=== PATIENT | male | born 1970 | race Caucasian/White ===

== ENCOUNTER 2018-07-24 12:58 | Emergency (ER) | payer OTHER ==
[~2018-07-24] VITALS: Ht 180.3 cm; Wt 104.3 kg
--- OUTSIDE RECORDS SUMMARY | ~2018-07-24 | XMS | Clinical Summary ---
Demographics + + + | Address | [address] | | | [place] [address] | + + + | Home Phone | | + + + | Preferred Language | Unknown | + + + | Marital Status | | + + + | Muslim Affiliation | Unknown | + + + | Race | Unknown | + + + | Ethnic Group | Unknown | + + + Author + + + | Author | [facility] | | | and [place] | + + + | Organization | [facility] | | | and [place] | + + + | Address | Unknown | + + + | Phone | Unavailable | + + + Support + + + + + | Name | Relationship | Address | Phone | + + + + + | Michelle Oliva | ECON | [address] | | | | | [place] | | | | | [address] | | + + + + + Care Team Providers + +------+ + | Care Remittance Clerk Name | Role | Phone | + +------+ + | Reggie Baker MD | PP | | + +------+ + Allergies + + + + + + | Active Allergy | Reactions | Severity | Noted | Comments | | | | | Date | | + + + + + + | Latex | Rash | Low | 09/27/20 | | | | | | 14 | | + + + + + + Current Medications + + +---------+---------+------+------+-------+ | Prescription | Sig. | Disp. | Refills | Star | End | Statu | | | | | | t | Date | s | | | | | | Date | | | + + +---------+---------+------+------+-------+ | FLUoxetine | Take 20 mg by mouth | | | | | Activ | | (PROZAC) 20 mg | Daily. | | | | | e | | capsule | | | | | | | + + +---------+---------+------+------+-------+ | aripiprazole | Take 30 mg by mouth | | | | | Activ | | (ABILIFY) 30 MG | Daily. | | | | | e | | tablet | | | | | | | + + +---------+---------+------+------+-------+ | QUEtiapine | Take 100 mg by mouth | | | | | Activ | | (SEROQUEL) 100 mg | nightly. | | | | | e | | tablet | | | | | | | + + +---------+---------+------+------+-------+ | gabapentin | Take 3 capsules by | 270 | 0 | /2 | | Activ | | (NEURONTIN) 300 mg | mouth 3 times daily. | capsule | | 01/19 | | e | | capsuleIndications: | | | | 16 | | | | Midline low back | | | | | | | | pain without | | | | | | | | sciatica, Bilateral | | | | | | | | low back pain | | | | | | | | without sciatica, | | | | | | | | Cervical spondylosis | | | | | | | | without myelopathy, | | | | | | | | Cervical stenosis | | | | | | | | of spine, DDD | | | | | | | | (degenerative disc | | | | | | | | disease), lumbar | | | | | | | + + +---------+---------+------+------+-------+ | | Take 10 mg by mouth | | | 042 | | Activ | | amphetamine-dextroam | Daily. | | | 03/21 | | e | | phetamine (ADDERALL | | | | 17 | | | | XR) 10 mg 24 hr | | | | | | | | capsule | | | | | | | + + +---------+---------+------+------+-------+ Active Problems + + + | Problem | Noted Date | + + + | S/P cervical spinal fusion | 01/07/2017 | + + + | Anemia | 12/04/2016 | + + + | BMI 39.0-39.9,adult | 12/04/2016 | + + + | History of tobacco abuse | 12/04/2016 | + + + | H/O Allergy to LATEX | 12/03/2016 | + + + | Cervical subluxation, subsequent encounter | 08/08/2016 | + + + | Cervical cord myelomalacia (HCC) | 08/08/2016 | + + + | Degenerative disc disease, cervical | 08/08/2016 | + + + | Chronic low back pain | 02/15/2015 | + + + | Facet arthritis of lumbar region (HCC) | 02/15/2015 | + + + | DDD (degenerative disc disease), lumbar | 02/15/2015 | + + + | Cervical spondylosis with myelopathy | 01/10/2015 | + + + | Cervical stenosis of spine | 01/10/2015 | + + + | Foraminal stenosis of cervical region | 01/10/2015 | + + + | Bilateral low back pain without sciatica | 01/10/2015 | + + + | ADHD (attention deficit hyperactivity disorder) | | + + + | Depression | | + + + Family History + + +------+ + | Medical History | Relation | Name | Comments | + + +------+ + | Arthritis | Father | | | + + +------+ + | Hypertension | Father | | | + + +------+ + | Alcohol abuse | Mother | | | + + +------+ + | Arthritis | Mother | | | + + +------+ + | Hypertension | Mother | | | + + +------+ + | Mental illness | Mother | | | + + +------+ + | Other (see comment) | Mother | | lung problems | + + +------+ + + +------+--------+ + | Relation | Name | Status | Comments | + +------+--------+ + | Father | | | | + +------+--------+ + | Mother | | | | + +------+--------+ + Social History + + + +--------+ + | Tobacco Use | Types | Packs/Day | Years | Date | | | | | Used | | + + + +--------+ + | Former Smoker | Cigarettes | 0.5 | 20 | Quit: 01/10/2009 | + + + +--------+ + + +------+---+---+ | Smokeless Tobacco: | Chew | | | | Current User | | | | + +------+---+---+ + + +---------+ + | Alcohol Use | Drinks/We | oz/Week | Comments | | | ek | | | + + +---------+ + | No | 0 | 0.0 | quit 2012 | | | Standard | | | | | drinks or | | | | | | | | | | equivalen | | | | | t | | | + + +---------+ + + + + | Sex Assigned at | Date Recorded | | | | + + + | Not on file | | + + + Last Filed Vital Signs + + + + | Vital Sign | Reading | Time Taken | + + + + | Blood Pressure | 124/78 | 03/04/2017 1243 PDT | + + + + | Pulse | 80 | 03/04/20171242 PDT | + + + + | Temperature | 35.6 C (96.1 F) | 12/05/2016718 PST | + + + + | Respiratory Rate | 18 | 12/05/2016718 PST | + + + + | Oxygen Saturation | 96% | 12/05/201619 PST | + + + + | Inhaled Oxygen | - | - | | Concentration | | | + + + + | Weight | 110.7 kg (244 lb) | 03/04/20171242 PDT | + + + + | Height | 180.3 cm (5' 11") | 03/04/20171242 PDT | + + + + | Body Mass Index | 34.03 | 03/04/20171242 PDT | + + + + Plan of Treatment + + + + + | Health Maintenance | Due Date | Last Done | Comments | + + + + + | Vaccine: | | | | | Dtap/Tdap/Td (1 - | 1 | | | | Tdap) | | | | + + + + + | Vaccine: Influenza | | | | | (#1) | 8 | | | + + + + + Implants + +-------+--------+ +--------+--------+--------+ | Implanted | Type | Area | Manufacture | Device | Expira | Model | | | | | r | | tion | / | | | | | | Identi | Date | Serial | | | | | | fier | | / Lot | + +-------+--------+ +--------+--------+--------+ | Hayes Sharpn Pls 1cc Aseptic | Graft | N/A: | [employer]IC - | | 08/13/ | [id number] | | - [id number]: Qty: | | Spine | MEDT | | 2018 | | | 1 on 12/04/2016 by Nila, | | Linda | | | | /[id number] | | Brain Rae MD | | al | | | | 6-090 | | | | | | | | / | + +-------+--------+ +--------+--------+--------+ | Algrft Cerv [id number] - | Graft | N/A: | SPINALGRAFT | | 07/15/ | [id number] | | [id number]: Qty: 1 on | | Spine | | | 2018 | | | 12/04/2016 by Brain Dotson, | | Cervgina | TECHNOLOGIE | | | /[id number] | | MD | | al | S - SPNL | | | 735 | | | | | | | | /12136 | | | | | | | | 1441 | + +-------+--------+ +--------+--------+--------+ | Algrft Cerv [id number] - | Graft | N/A: | SPINALGRAFT | | 06/16/ | [id number] | | [id number]: Qty: 1 on | | Spine | | | 2018 | | | 12/04/2016 by Brain Dotson, | | Cervic | TECHNOLOGIE | | | /[id number] | | MD | | al | S - SPNL | | | 786 | | | | | | | | /90191 | | | | | | | | 0353 | + +-------+--------+ +--------+--------+--------+ | Algrft Cerv 6 X 4 X11m - | Graft | N/A: | SPINALGRAFT | | 07/29/ | [id number] | | [id number]: Qty: 1 on | | Spine | | | 2018 | | | 12/04/2016 by Brain Dotson, | | Cervic | TECHNOLOGIE | | | /03727 | | MD | | al | S - SPNL | | | 280 | | | | | | | | /80414 | | | | | | | | 1576 | + +-------+--------+ +--------+--------+--------+ | Algrft Cerv [id number] - | Graft | N/A: | SPINALGRAFT | | 06/16/ | 447219 | | [id number]: Qty: 1 on | | Spine | | | 2018 | | | 12/04/2016 by Brain Dotson, | | Cervic | TECHNOLOGIE | | | /[id number] | | MD | | al | S - SPNL | | | 790 | | | | | | | | /52885 | | | | | | | | 0353 | + +-------+--------+ +--------+--------+--------+ | Plate [place]mol [place] Cerv | Plate | N/A: | MED[employer]IC - | | | 252371 | | 77.5mm - [id number]: | | Spine | MEDT | | | 7 / | | Qty: 1 on 12/04/2016 by Nila, | | Linda | | | | | | Brain Rae MD | | al | | | | | + +-------+--------+ +--------+--------+--------+ | Screw Slf-Drl F/A 4.0x17mm - | Screw | N/A: | SOFAMOR | | | [id number] | | [id number]: Qty: 2 on | | Spine | DANEK - DIV | | | / | | 12/04/2016 by Brain Dotson, | | Reidic | [employer]IC | | | | | MD | | al | - SFDK | | | | + +-------+--------+ +--------+--------+--------+ | Screw Slf-Drl V/A 4.0x17mm - | Screw | N/A: | SOFAMOR | | | [id number] | | [id number]: Qty: 8 on | | Spine | DANEK - DIV | | | / | | 12/04/2016 by Brain Dotson, | | Cervic | MEDTRONIC | | | | | MD | | al | - SFDK | | | | + +-------+--------+ +--------+--------+--------+ Results Not on filefrom Last 3 Months Insurance + +--------+ +--------+ +---------+ | Payer | Benefi | Subscriber | Type | Phone | Address | | | t Plan | ID | | | | | | / | | | | | | | Group | | | | | + +--------+ +--------+ +---------+ | [employer] | MODA | [id number] | Medica | [phone] | | | MEDICAID HMO | HEALTH | | id | [id number] | | | | [place]CD | | | | | | | [place] | | | | | + +--------+ +--------+ +---------+ + +--------+ +--------+ + + | Guarantor Name | Accoun | Relation to | Date | Phone | Billing Address | | | t Type | Patient | of | | | | | | | | | | + +--------+ +--------+ + + | KEM OLIVA | Person | Self | [birth year] | Home: | [address] | | [place] | al/Fam | | 1970 | [phone] | [address], | | | [place] | | | [phone] | [place] [phone] | + +--------+ +--------+ + +
--- OUTSIDE RECORDS SUMMARY | ~2018-07-24 | XMS | Clinical Summary ---
Demographics + + + | Address | [address] | | | [place] [address] | + + + | Home Phone | | + + + | Preferred Language | Unknown | + + + | Marital Status | | + + + | Roman Catholic Affiliation | Unknown | + + + | Race | Unknown | + + + | Ethnic Group | Unknown | + + + Author + + + | Author | [facility] | + + + | Organization | [facility] | + + + | Address | Unknown | + + + | Phone | Unavailable | + + + Support + + +---------+ + | Name | Relationship | Address | Phone | + + +---------+ + | Dinorah Oliva | ECON | Unknown | | + + +---------+ + Care Team Providers + +------+ + | Care Real Estate Professional Name | Role | Phone | + [...]
--- OUTSIDE RECORDS SUMMARY | ~2018-07-24 | XMS | Clinical Summary ---
Demographics + + + | Address | [address] | | | [place] [address] | + + + | Home Phone | | + + + | Preferred Language | Unknown | + + + | Marital Status | | + + + | Yarsani Affiliation | Unknown | + + + | Race | Unknown | + + + | Ethnic Group | Unknown | + + + Author + + + | Author | [facility] | | | and [place] | + + + | Organization | [facility] | | | [...] [place] | | | | | [address] | | + + + + + Care Team Providers + +------+ + | Care Health Record Technician Name | Role | Phone | + [...] | [employer] - | | 08/13/ | [id number] | | - [id number]: Qty: | | Spine | MEDT | | 2018 | | | 1 on 12/04/2016 by Nila, | | Linda | | | | /[id number] | | Brain Rae MD | | al | | | | 6-090 | | | | | | | | / | + +-------+--------+ +--------+--------+--------+ | Algrft Cerv [id number] - | Graft | N/A: | SPINALGRAFT | | 07/15/ | 464810 | | [id number]: Qty: 1 on | | Spine | | | 2018 | | | 12/04/2016 by Brain Dotson, | | Cervgina | TECHNOLOGIE | | | /34480 | | MD | | al | S - SPNL | | | 735 | | | | | | | | /57896 | | | | | | | | 1441 | + +-------+--------+ +--------+--------+--------+ | Algrft Cerv [id number] - | Graft | N/A: | SPINALGRAFT | | 06/16/ | 143187 | | [id number]: Qty: 1 on | | Spine | | | 2018 | | | 12/04/2016 by Brain Dotson, | | Cervic | TECHNOLOGIE | | | /[id number] | | MD | | al | S - SPNL | | | 786 | | | | | | | | /89882 | | | | | | | | 0353 | + +-------+--------+ +--------+--------+--------+ | Algrft Cerv 6 X 4 X11m - | Graft | N/A: | SPINALGRAFT | | 07/29/ | 234909 | | [id number]: Qty: 1 on | | Spine | | | 2018 | | | 12/04/2016 by Brain Dotson, | | Cervic | TECHNOLOGIE | | | /38280 | | MD | | al | S - SPNL | | | 280 | | | | | | | | /02993 | | | | | | | | 1576 | + +-------+--------+ +--------+--------+--------+ | Algrft Cerv [id number] - | Graft | N/A: | SPINALGRAFT | | 06/16/ | 023878 | | [id number]: Qty: 1 on | | Spine | | | 2018 | | | 12/04/2016 by Brain Dotson, | | Cervic | TECHNOLOGIE | | | /53811 | | MD | | al | S - SPNL | | | 790 | | | | | | | | /52976 | | | | | | | | 0353 | + +-------+--------+ +--------+--------+--------+ | Plate Anmol [place] Cerv | Plate | N/A: | [employer] - | | | 592231 | | 77.5mm - [id number]: | | Spine | MEDT | | | 7 / | | Qty: 1 on 12/04/2016 by Nila, | | Linda | | | | | | Brain Rae MD | | al | | | | | + +-------+--------+ +--------+--------+--------+ | Screw Slf-Drl F/A 4.0x17mm - | Screw | N/A: | SOFAMOR | | | [id number] | | [id number]: Qty: 2 on | | Spine | DANEK - DIV | | | / | | 12/04/2016 by Brain Dotson, | | Reidic | [employer]IC | | | | | MD | | al | - SFDK | | | | + +-------+--------+ +--------+--------+--------+ | Screw Slf-Drl V/A 4.0x17mm - | Screw | N/A: | SOFAMOR | | | 258861 | | [id number]: Qty: 8 on | | Spine | [...] | [employer] | MODA | [id number] | Medica | [phone] | | | MEDICAID HMO | HEALTH [...] Self | [birth year] | Home: | [address] | | [place] | al/Fam | | 1970 | [phone] | [address], | | | [place] | | | [phone] | [place] [phone] | + +--------+ +--------+ + +
--- OUTSIDE RECORDS SUMMARY | ~2018-07-24 | XMS | Clinical Summary ---
Demographics + + + | Address | [address] | | | [place] [address] | + + + | Home Phone | | + + + | Preferred Language | Unknown | + + + | Marital Status | | + + + | Cheondoism Affiliation | Unknown | + + + | Race | Unknown | + + + | Ethnic Group | Unknown | + + + Author + + + | Author | [facility] | + + + | Organization | [facility] | + + + | Address | Unknown | + + + | Phone | Unavailable | + + + Support + + +---------+ + | Name | Relationship | Address | Phone | + + +---------+ + | Dinorah Oliva | ECON | Unknown | | + + +---------+ + Care Team Providers + +------+ + | Care Manager Action Name | Role | Phone | + [...]
[~2018-07-24 12:58] MED LIST: ABILIFY10 MG PO; ANAPROX DS550 MG PO; BACLOFEN10 MG PO; CELEXA10 MG PO; CELEXA20 MG PO; CELEXA40 MG PO; CITALOPRAM HBR40 MG PO; CRUTCH1 EACH; CYCLOBENZAPRINE10 MG PO; DULCOLAX5 MG PO; FLEXERIL10 MG PO; FLUOXETINE HCL20 MG PO; GABAPENTIN300 MG PO; GUANFACINE HCL2 MG PO; HYDROCODON-ACE1 EAC8 PO; IBUPROFEN200 MG PO; IBUPROFEN600 MG PO; IBUPROFEN800 MG PO; LACTULOSE10 GM/152 PO; MEDROL4 M1 PO; MELOXICAM15 MG PO; NORCO 5-325 TA1 EACH PO; PAIN RELIEVER325 MG PO; PERCOCET 10-321 EACH PO; PERCOCET 5-3251 EACH PO; RITALIN10 MG PO; ROBAXIN-750750 MG PO; SEROQUEL100 MG PO; TRAMADOL HCL50 MG PO; TRAZODONE HCL50 MG PO; TYLENOL325 MG PO; XANAX0.5 MG PO; XANAX1 MG PO
[2018-07-24] MEDS ORDERED: SEROQUEL XR150 MG PO (13:24)
[2018-07-24] MEDS ORDERED: VENLAFAXINE H37.5 MG PO (13:26)
[2018-07-24] MEDS ORDERED: CYCLOBENZAPRINE5 MG PO (14:14)
[2018-07-24] MEDS ORDERED: KETOROLAC TROME10 MG PO (14:14)
[2018-07-24] MEDS ORDERED: NORCO 10-325 T1 EACH PO (14:14)
== END 2018-07-24 14:34 | disposition home or self-care (01) ==
LOC: ED 12:58
DX: M62.838 Other muscle spasm (principal); F32.9 Major depressive disorder, single episode, unspecified; F90.9 Attention-deficit hyperactivity disorder, unspecified type; Z91.040 Latex allergy status; Z79.899 Other long term (current) drug therapy
CPT/HCPCS: 96372; 99283; J1100; J1885

== ENCOUNTER 2018-07-27 21:47 | Emergency (ER) | payer OTHER ==
[~2018-07-27] VITALS: Ht 177.8 cm; Wt 95.2 kg
--- OUTSIDE RECORDS SUMMARY | ~2018-07-27 | XMS | Clinical Summary ---
Demographics + + + | Address | [address] | | | [place] [address] | + + + | Home Phone | | + + + | Preferred Language | Unknown | + + + | Marital Status | | + + + | Sikhism Affiliation | Unknown | + + + | Race | Unknown | + + + | Ethnic Group | Unknown | + + + Author + + + | Author | [facility] | + + + | Organization | [facility] | + + + | Address | Unknown | + + + | Phone | Unavailable | + + + Support + + +---------+ + | Name | Relationship | Address | Phone | + + +---------+ + | Dinorah Oliva | ECON | Unknown | | + + +---------+ + Care Team Providers + +------+ + | Care Staff Therapist Name | Role | Phone | + +------+ + | Kervin Monroe MD | PP | | + +------+ + Allergies Not on File Current Medications Not on file Active Problems Not on file Social History + +-------+ +--------+------+ | Tobacco Use | Types | Packs/Day | Years | Date | | | | | Used | | + +-------+ +--------+------+ | Never Assessed | | | | | + +-------+ +--------+------+ + + + | Sex Assigned at | Date Recorded | | | | + + + | Not on file | | + + + Plan of Treatment Not on file Results Not on filefrom Last 3 Months"
--- OUTSIDE RECORDS SUMMARY | ~2018-07-27 | XMS | Clinical Summary ---
Demographics + + + | Address | [address] | | | [place] [address] | + + + | Home Phone | | + + + | Preferred Language | Unknown | + + + | Marital Status | | + + + | Sabianist Affiliation | Unknown | + + + | Race | Unknown | + + + | Ethnic Group | Unknown | + + + Author + + + | Author | [facility] | | | and [place] | + + + | Organization | [facility] | | | and [...] [address] | | | | | [address] | | + + + + + Care Team Providers + +------+ + | Care Preanalytics Team Lead Name | Role | Phone | + [...] | [employer] - | | 08/13/ | [id number] | | - [id number]: Qty: | | Spine | MEDT | | 2018 | | | 1 on 12/04/2016 by Nila, | | Linda | | | | /[id number] | | Brain Rae MD | | al | | | | 6-090 | | | | | | | | / | + +-------+--------+ +--------+--------+--------+ | Algrft Cerv [id number] - | Graft | N/A: | SPINALGRAFT | | 07/15/ | [id number] | | [id number]: Qty: 1 on | | Spine | | | 2018 | | | 12/04/2016 by Brain Dotson, | | Cervgina | TECHNOLOGIE | | | /03987 | | MD | | al | S - SPNL | | | 735 | | | | | | | | /34665 | | | | | | | | 1441 | + +-------+--------+ +--------+--------+--------+ | Algrft Cerv [id number] - | Graft | N/A: | SPINALGRAFT | | 06/16/ | 032263 | | [id number]: Qty: 1 on | | Spine | | | 2018 | | | 12/04/2016 by Brain Dotson, | | Cervic | TECHNOLOGIE | | | /78553 | | MD | | al | S - SPNL | | | 786 | | | | | | | | /44851 | | | | | | | | 0353 | + +-------+--------+ +--------+--------+--------+ | Algrft Cerv 6 X 4 X11m - | Graft | N/A: | SPINALGRAFT | | 07/29/ | 619635 | | [id number]: Qty: 1 on | | Spine | | | 2018 | | | 12/04/2016 by Brain Dotson, | | Cervic | TECHNOLOGIE | | | /59136 | | MD | | al | S - SPNL | | | 280 | | | | | | | | /78407 | | | | | | | | 1576 | + +-------+--------+ +--------+--------+--------+ | Algrft Cerv [id number] - | Graft | N/A: | SPINALGRAFT | | 06/16/ | 578861 | | [id number]: Qty: 1 on | | Spine | | | 2018 | | | 12/04/2016 by Brain Dotson, | | Cervic | TECHNOLOGIE | | | /94896 | | MD | | al | S - SPNL | | | 790 | | | | | | | | /57048 | | | | | | | | 0353 | + +-------+--------+ +--------+--------+--------+ | Plate [place]mol [place] Cerv | Plate | N/A: | [employer]IC - | | | 718260 | | 77.5mm - [id number]: | | Spine | MEDT | | | 7 / | | Qty: 1 on 12/04/2016 by Nila, | | Linda | | | | | | Brain Rae MD | | al | | | | | + +-------+--------+ +--------+--------+--------+ | Screw Slf-Drl F/A 4.0x17mm - | Screw | N/A: | SOFAMOR | | | [id number] | | [id number]: Qty: 2 on | | Spine | DANEK - DIV | | | / | | 12/04/2016 by Brain Dotson, | | Reidic | MEDTRONIC | | | | | MD | | al | - SFDK | | | | + +-------+--------+ +--------+--------+--------+ | Screw Slf-Drl V/A 4.0x17mm - | Screw | N/A: | SOFAMOR | | | [id number] | | [id number]: Qty: 8 on | | Spine | [...] | [employer] | MODA | [id number] | Medica | [phone] | | | MEDICAID HMO | HEALTH [...] Self | [birth year] | Home: | [address] | | [place] | al/Fam | | 1970 | [phone] | [address], | | | [place] | | | [phone] | [place] [address] | + +--------+ +--------+ + +
--- OUTSIDE RECORDS SUMMARY | ~2018-07-27 | XMS | Clinical Summary ---
Demographics + + + | Address | [address] | | | [place] [address] | + + + | Home Phone | | + + + | Preferred Language | Unknown | + + + | Marital Status | | + + + | Caodaism Affiliation | Unknown | + + + | Race | Unknown | + + + | Ethnic Group | Unknown | + + + Author + + + | Author | [facility] | + + + | Organization | [facility] | + + + | Address | Unknown | + + + | Phone | Unavailable | + + + Support + + +---------+ + | Name | Relationship | Address | Phone | + + +---------+ + | Dinorah Oliva | ECON | Unknown | | + + +---------+ + Care Team Providers + +------+ + | Care Speech Therapist Name | Role | Phone | [...]
--- OUTSIDE RECORDS SUMMARY | ~2018-07-27 | XMS | Clinical Summary ---
Demographics + + + | Address | [address] | | | [place] [address] | + + + | Home Phone | | + + + | Preferred Language | Unknown | + + + | Marital Status | | + + + | Rastafari Affiliation | Unknown | + + + | Race | Unknown | + + + | Ethnic Group | Unknown | + + + Author + + + | Author | [facility] | | | and [place] | + + + | Organization | [facility] | | | and [...] [place] | | | | | [address] | | + + + + + Care Team Providers + +------+ + | Care Gore Cutter Name | Role | Phone | + [...] Lot | + +-------+--------+ +--------+--------+--------+ | Hayes Shrapn Pls 1cc Aseptic | Graft | N/A: | [employer] - | | 08/13/ | [id number] | | - [id number]: Qty: | | Spine | MEDT | | 2018 | | | 1 on 12/04/2016 by Nila, | | Linda | | | | /[id number] | | Brain Rae MD | | al | | | | 6-090 | | | | | | | | / | + +-------+--------+ +--------+--------+--------+ | Algrft Cerv [id number] - | Graft | N/A: | SPINALGRAFT | | 07/15/ | 459033 | | [id number]: Qty: 1 on | | Spine | | | 2018 | | | 12/04/2016 by Brain Dotson, | | Cervgina | TECHNOLOGIE | | | /57214 | | MD | | al | S - SPNL | | | 735 | | | | | | | | /66067 | | | | | | | | 1441 | + +-------+--------+ +--------+--------+--------+ | Algrft Cerv [id number] - | Graft | N/A: | SPINALGRAFT | | 06/16/ | 282514 | | [id number]: Qty: 1 on | | Spine | | | 2018 | | | 12/04/2016 by Brian Dotson, | | Cervic | TECHNOLOGIE | | | /72786 | | MD | | al | S - SPNL | | | 786 | | | | | | | | /14966 | | | | | | | | 0353 | + +-------+--------+ +--------+--------+--------+ | Algrft Cerv 6 X 4 X11m - | Graft | N/A: | SPINALGRAFT | | 07/29/ | [id number] | | [id number]: Qty: 1 on | | Spine | | | 2018 | | | 12/04/2016 by Brain Dotson, | | Cervic | TECHNOLOGIE | | | /[id number] | | MD | | al | S - SPNL | | | 280 | | | | | | | | /30082 | | | | | | | | 1576 | + +-------+--------+ +--------+--------+--------+ | Algrft Cerv [id number] - | Graft | N/A: | SPINALGRAFT | | 06/16/ | [id number] | | [id number]: Qty: 1 on | | Spine | | | 2018 | | | 12/04/2016 by Brain Dotson, | | Cervic | TECHNOLOGIE | | | /[id number] | | MD | | al | S - SPNL | | | 790 | | | | | | | | /68104 | | | | | | | | 0353 | + +-------+--------+ +--------+--------+--------+ | Plate Anmol [facility] Cerv | Plate | N/A: | MEDTRONIC - | | | [id number] | | 77.5mm - [id number]: | | Spine | MEDT | | | 7 / | | Qty: 1 on 12/04/2016 by Nila, | | Linda | | | | | | Brain Rae MD | | al | | | | | + +-------+--------+ +--------+--------+--------+ | Screw Slf-Drl F/A 4.0x17mm - | Screw | N/A: | SOFAMOR | | | [id number] | | [id number]: Qty: 2 on | | Spine | DANEK - DIV | | | / | | 12/04/2016 by Brain Dotson, | | Reidic | MEDTRONIC | | | | | MD | | al | - SFDK | | | | + +-------+--------+ +--------+--------+--------+ | Screw Slf-Drl V/A 4.0x17mm - | Screw | N/A: | SOFAMOR | | | [id number] | | [id number]: Qty: 8 on | | Spine | [...] | [employer] | [employer] | [id number] | Medica | [phone] | | MEDICAID HMO | HEALTH [...] Self | [birth year] | Home: | [address] | | [place] | al/Fam | | 1970 | [phone] [address], | | | [place] | | | [phone] | [place] [phone] | + +--------+ +--------+ + +
[~2018-07-27 21:47] MED LIST changes: +CYCLOBENZAPRINE5 MG PO; +KETOROLAC TROME10 MG PO; +NORCO 10-325 T1 EACH PO; +SEROQUEL XR150 MG PO; +VENLAFAXINE H37.5 MG PO
--- OUTSIDE RECORDS SUMMARY | 2018-07-27 21:52 | XMS ---
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 Elaina has no Care Guidelines for this patient. Shakila VISIT COUNT (12 MO.) [address] [facility] TOTAL 3 NOTE: Visits indicate total known visits. ED/C VISIT TRACKING (12 MO.) 07/27/2018 21:47 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
[2018-07-28] MEDS ORDERED: CYCLOBENZAPRINE10 MG PO (16:05)
== END 2018-07-27 23:35 | disposition home or self-care (01) ==
LOC: ED 21:47
DX: M54.2 Cervicalgia (principal); F32.9 Major depressive disorder, single episode, unspecified; F90.9 Attention-deficit hyperactivity disorder, unspecified type; Z87.891 Personal history of nicotine dependence; Z91.040 Latex allergy status; Z79.899 Other long term (current) drug therapy
CPT/HCPCS: 99283

== ENCOUNTER 2018-07-28 12:38 | Emergency (ER) | payer OTHER ==
[~2018-07-28] VITALS: Ht 177.8 cm; Wt 95.2 kg
--- OUTSIDE RECORDS SUMMARY | ~2018-07-28 | XMS | Clinical Summary ---
Demographics + + + | Address | [address] | | | [place] [address] | + + + | Home Phone | | + + + | Preferred Language | Unknown | + + + | Marital Status | | + + + | Lutheran Affiliation | Unknown | + + + | Race | Unknown | + + + | Ethnic Group | Unknown | + + + Author + + + | Author | [facility] | | | and [place] | + + + | Organization | [facility] | | | [...] [address] | | | | | [address] | | + + + + + Care Team Providers + +------+ + | Care Television Receiver Analyzer Name | Role | Phone | + [...] | [employer]IC - | | 08/13/ | [id number] | | - [id number]: Qty: | | Spine | MEDT | | 2018 | | | 1 on 12/04/2016 by Nila, | | Linda | | | | /[id number] | | Brain Rae MD | | al | | | | 6-090 | | | | | | | | / | + +-------+--------+ +--------+--------+--------+ | Algrft Cerv [id number] - | Graft | N/A: | SPINALGRAFT | | 07/15/ | [id number] | | [id number]: Qty: 1 on | | Spine | | | 2018 | | | 12/04/2016 by Brain Dotson, | | Cervgina | TECHNOLOGIE | | | /[id number] | | MD | | al | S - SPNL | | | 735 | | | | | | | | /84255 | | | | | | | | 1441 | + +-------+--------+ +--------+--------+--------+ | Algrft Cerv [id number] - | Graft | N/A: | SPINALGRAFT | | 06/16/ | [id number] | | [id number]: Qty: 1 on | | Spine | | | 2018 | | | 12/04/2016 by Brain Dotson, | | Cervic | TECHNOLOGIE | | | /82283 | | MD | | al | S - SPNL | | | 786 | | | | | | | | /00850 | | | | | | | | 0353 | + +-------+--------+ +--------+--------+--------+ | Algrft Cerv 6 X 4 X11m - | Graft | N/A: | SPINALGRAFT | | 07/29/ | 608788 | | [id number]: Qty: 1 on | | Spine | | | 2018 | | | 12/04/2016 by Brain Dotson, | | Cervic | TECHNOLOGIE | | | /25599 | | MD | | al | S - SPNL | | | 280 | | | | | | | | /79864 | | | | | | | | 1576 | + +-------+--------+ +--------+--------+--------+ | Algrft Cerv [id number] - | Graft | N/A: | SPINALGRAFT | | 06/16/ | 483660 | | [id number]: Qty: 1 on | | Spine | | | 2018 | | | 12/04/2016 by Brain Dotson, | | Cervic | TECHNOLOGIE | | | /67116 | | MD | | al | S - SPNL | | | 790 | | | | | | | | /29791 | | | | | | | | 0353 | + +-------+--------+ +--------+--------+--------+ | Plate Anmol VenturaMondamin Cerv | Plate | N/A: | MED[employer]IC - | | | 586700 | | 77.5mm - [id number]: | | Spine | MEDT | | | 7 / | | Qty: 1 on 12/04/2016 by Nila, | | Linda | | | | | | Brain Rae MD | | al | | | | | + +-------+--------+ +--------+--------+--------+ | Screw Slf-Drl F/A 4.0x17mm - | Screw | N/A: | SOFAMOR | | | [id number] | | [id number]: Qty: 2 on | | Spine | DANEK - DIV | | | / | | 12/04/2016 by Brain Dotson, | | Reidic | [employer]IC | | | | | MD | | al | - SFDK | | | | + +-------+--------+ +--------+--------+--------+ | Screw Slf-Drl V/A 4.0x17mm - | Screw | N/A: | SOFAMOR | | | [id number] | | [id number]: Qty: 8 on | | Spine | [...] | [employer] | MODA | [id number] | Medica | [phone] | | | MEDICAID HMO | HEALTH [...] Self | [birth year] | Home: | [address] | | [place] | al/Fam | | 1970 | [phone] [address], | | | haylie | | | [phone] | [place] [address] | + +--------+ +--------+ + +
--- OUTSIDE RECORDS SUMMARY | ~2018-07-28 | XMS | Clinical Summary ---
Demographics + + + | Address | [address] | | | [place] [address] | + + + | Home Phone | | + + + | Preferred Language | Unknown | + + + | Marital Status | | + + + | Mu-Ism Affiliation | Unknown | + + + | Race | Unknown | + + + | Ethnic Group | Unknown | + + + Author + + + | Author | [facility] | | | and [place] | + + + | Organization | [facility] | | | [...] [address] | | | | | [address] | | + + + + + Care Team Providers + +------+ + | Care Alfalfa Dehydrator Operator Name | Role | Phone | + [...] | [employer] - | | 08/13/ | [id number] | | - [id number]: Qty: | | Spine | MEDT | | 2018 | | | 1 on 12/04/2016 by Nila, | | Linda | | | | /[id number] | | Brain Rae MD | | al | | | | 6-090 | | | | | | | | / | + +-------+--------+ +--------+--------+--------+ | Algrft Cerv [id number] - | Graft | N/A: | SPINALGRAFT | | 07/15/ | 859446 | | [id number]: Qty: 1 on | | Spine | | | 2018 | | | 12/04/2016 by Brain Dotson, | | Cervgina | TECHNOLOGIE | | | /15051 | | MD | | al | S - SPNL | | | 735 | | | | | | | | /36197 | | | | | | | | 1441 | + +-------+--------+ +--------+--------+--------+ | Algrft Cerv [id number] - | Graft | N/A: | SPINALGRAFT | | 06/16/ | 926371 | | [id number]: Qty: 1 on | | Spine | | | 2018 | | | 12/04/2016 by Brain Dotson, | | Cervic | TECHNOLOGIE | | | /23661 | | MD | | al | S - SPNL | | | 786 | | | | | | | | /76125 | | | | | | | | 0353 | + +-------+--------+ +--------+--------+--------+ | Algrft Cerv 6 X 4 X11m - | Graft | N/A: | SPINALGRAFT | | 07/29/ | 233055 | | [id number]: Qty: 1 on | | Spine | | | 2018 | | | 12/04/2016 by Brain Dotson, | | Cervic | TECHNOLOGIE | | | /72516 | | MD | | al | S - SPNL | | | 280 | | | | | | | | /52927 | | | | | | | | 1576 | + +-------+--------+ +--------+--------+--------+ | Algrft Cerv [id number] - | Graft | N/A: | SPINALGRAFT | | 06/16/ | 990194 | | [id number]: Qty: 1 on | | Spine | | | 2018 | | | 12/04/2016 by Brain Dotson, | | Cervic | TECHNOLOGIE | | | /63866 | | MD | | al | S - SPNL | | | 790 | | | | | | | | /77058 | | | | | | | | 0353 | + +-------+--------+ +--------+--------+--------+ | Plate Anmol Ventura[place]ucalyptus [place] Cerv | Plate | N/A: | [employer] - | | | 769227 | | 77.5mm - [id number]: | | Spine | MEDT | | | 7 / | | Qty: 1 on 12/04/2016 by Nila, | | Linda | | | | | | Brain Rae MD | | al | | | | | + +-------+--------+ +--------+--------+--------+ | Screw Slf-Drl F/A 4.0x17mm - | Screw | N/A: | SOFAMOR | | | [id number] | | [id number]: Qty: 2 on | | Spine | DANEK - DIV | | | / | | 12/04/2016 by Brain Dotson, | | Reidic | [employer]IC | | | | | MD | | al | - SFDK | | | | + +-------+--------+ +--------+--------+--------+ | Screw Slf-Drl V/A 4.0x17mm - | Screw | N/A: | SOFAMOR | | | 777260 | | [id number]: Qty: 8 on | | Spine | [...] | [employer] | MODA | [id number] | Medica | [phone] | | | MEDICAID HMO | HEALTH [...] [place] | | | [phone] | [place] [address] | + +--------+ +--------+ + +
--- OUTSIDE RECORDS SUMMARY | ~2018-07-28 | XMS | Clinical Summary ---
Demographics + + + | Address | [address] | | | [place] [address] | + + + | Home Phone | | + + + | Preferred Language | Unknown | + + + | Marital Status | | + + + | Hoahaoism Affiliation | Unknown | + + + | Race | Unknown | + + + | Ethnic Group | Unknown | + + + Author + + + | Author | [facility] | + + + | Organization | [facility] | + + + | Address | Unknown | + + + | Phone | Unavailable | + + + Support + + +---------+ + | Name | Relationship | Address | Phone | + + +---------+ + | Dinorah Oliva | ECON | Unknown | | + + +---------+ + Care Team Providers + +------+ + | Care Social Media Marketing Specialist Name | Role | Phone | + [...]
--- OUTSIDE RECORDS SUMMARY | ~2018-07-28 | XMS | Clinical Summary ---
Demographics + + + | Address | [address] | | | [place] [address] | + + + | Home Phone | | + + + | Preferred Language | Unknown | + + + | Marital Status | | + + + | Samaritan Affiliation | Unknown | + + + | Race | Unknown | + + + | Ethnic Group | Unknown | + + + Author + + + | Author | [facility] | + + + | Organization | [facility] | + + + | Address | Unknown | + + + | Phone | Unavailable | + + + Support + + +---------+ + | Name | Relationship | Address | Phone | + + +---------+ + | Dinorah Oliva | ECON | Unknown | | + + +---------+ + Care Team Providers + +------+ + | Care Armed Guard Name | Role | Phone | + [...]
[2018-07-28] MEDS ORDERED: CYCLOBENZAPRINE10 MG PO (16:05)
== END 2018-07-28 16:20 | disposition home or self-care (01) ==
LOC: ED 12:38
DX: M54.2 Cervicalgia (principal); G44.209 Tension-type headache, unspecified, not intractable; Z91.040 Latex allergy status; Z79.899 Other long term (current) drug therapy
CPT/HCPCS: 99283

== ENCOUNTER 2018-12-11 19:35 | Emergency (ER) | payer OTHER ==
[~2018-12-11] VITALS: Ht 177.8 cm; Wt 93.0 kg
[2018-12-11] MEDS ORDERED: ADDERALL XR 3030 MG PO (19:49)
== END 2018-12-11 22:50 | disposition home or self-care (01) ==
LOC: ED 19:35
DX: R51 Headache (principal); M54.2 Cervicalgia; M25.561 Pain in right knee; G89.29 Other chronic pain; W10.9XXA Fall (on) (from) unspecified stairs and steps, initial encounter; F32.9 Major depressive disorder, single episode, unspecified; F90.9 Attention-deficit hyperactivity disorder, unspecified type; Z87.891 Personal history of nicotine dependence; Z91.040 Latex allergy status; Z79.899 Other long term (current) drug therapy
CPT/HCPCS: 70450; 72100; 72125; 73560; 99284-25

== ENCOUNTER 2019-08-20 19:17 | Emergency (ER) | payer OTHER ==
[~2019-08-20] VITALS: Ht 177.8 cm; Wt 97.1 kg
--- OUTSIDE RECORDS SUMMARY | ~2019-08-20 | XMS | Clinical Summary ---
Demographics + + + | Address | [address] | | | [place] [address] | + + + | Home Phone | | + + + | Preferred Language | Unknown | + + + | Marital Status | | + + + | Rastafarian Affiliation | Unknown | + + + | Race | Unknown | + + + | Ethnic Group | Unknown | + + + Author + + + | Author | [facility] (Historical as of | | | 06-18-19) | + + + | Organization | [facility] (Historical as of | | | 06-18-19) | + + + | Address | Unknown | + + + | Phone | Unavailable | + + + Support + + +---------+ + | Name | Relationship | Address | Phone | + + +---------+ + | Dinorah Oliva | ECON | Unknown | | + + +---------+ + Care Team Providers + +------+ + | Care Quartz Orientator Name | Role | Phone | + [...]
--- OUTSIDE RECORDS SUMMARY | ~2019-08-20 | XMS | Clinical Summary ---
Demographics + + + | Address | [address] | | | [place] [address] | + + + | Home Phone | | + + + | Preferred Language | Unknown | + + + | Marital Status | | + + + | Episcopalian Affiliation | Unknown | + + + | Race | Unknown | + + + | Ethnic Group | Unknown | + + + Author + + + | Author | [facility] | | | and [place] | + + + | Organization | [facility] | | | and [place] | [...] [address] | | | | | [address] | | + + + + + Care Team Providers + +------+ + | Care Holistic Nutritionist Name | Role | Phone | + +------+ + | Kervin Monroe MD | PCP | | + +------+ + Allergies + + + + + + | Active Allergy | Reactions | Severity | Noted | Comments | | | | | Date | | + + + + + + | Latex | Rash | Low | 09/27/20 | | | | | | 14 | | + + + + + + Medications + + + +---------+------+------+-------+ | Medication | Sig | Dispensed | Refills | Star | End | Statu | | | | | | t | Date | s | | | | | | Date | | | + + + +---------+------+------+-------+ | QUEtiapine | Take 100 mg by mouth | | 0 | | | Activ | | (SEROQUEL) 100 mg | nightly. | | | | | e | | tablet | | | | | | | + + + +---------+------+------+-------+ | | Take 30 mg by mouth | | 0 | 10/1 | | Activ | | amphetamine-dextroam | 2 times daily. | | | 20 | | e | | phetamine (ADDERALL | | | | 18 | | | | XR) 30 MG 24 hr | | | | | | | | capsule | | | | | | | + + + +---------+------+------+-------+ | celecoxib | Take 200 mg by mouth | | 0 | 07/04 | | Activ | | (CELEBREX) 200 mg | Daily. | | | 03/21 | | e | | capsule | | | | 18 | | | + + + +---------+------+------+-------+ | venlafaxine | Take 37.5 mg by | | 0 | | | Activ | | (EFFEXOR) 37.5 mg | mouth Daily. | | | | | e | | tablet | | | | | | | + + + +---------+------+------+-------+ Active Problems + + + | Problem [...] + + + | Cervical cord myelomalacia | 08/08/2016 | + + + | Degenerative disc disease, cervical | 08/08/2016 | + + + | Chronic low back pain | 02/15/2015 | + + + | Facet arthritis of lumbar region | 02/15/2015 | + + + | [...] | | + + +------+ + | Cancer | Mother | | Throat | + + +------+ + | Hypertension | Mother | | | + + +------+ + | Mental illness | Mother | | | + + +------+ + | Other (see comment) | Mother | | lung problems | + + +------+ + + +------+ + + | Relation | Name | Status | Comments | + +------+ + + | Father | | | | + +------+ + + | Mother | | | | + +------+ + + Social History + + + +--------+ [...] | | | + +------+---+---+ + + | Tobacco Cessation: Ready to Quit: No; Counseling Given: Yes | | Comments: 1 can of chew a week | + + + + +---------+ + | Alcohol Use | Drinks/We | oz/Week | Comments | | | ek | | | + + +---------+ + | No | 0 | 0.0 | quit 2013 | | | Standard | | | | | drinks or | | | | | | | | | | equivalen | | | | | t | | | + + +---------+ + + + + | Sex Assigned at | Date Recorded | | | | + + + | Not on file | | + + + + + + + | Job Start Date | Occupation | Industry | + + + + | Not on file | Not on file | Not on file | + + + + + + + + | Travel History | Travel Start | Travel End | + + + + + + | No recent travel history available. | + + Last Filed Vital Signs + + + + | Vital Sign | Reading | Time Taken | + + + + | Blood Pressure | 143/91 | 08/19/20181432 PDT | + + + + | Pulse | 83 | 08/19/20181432 PDT | + + + + | Temperature | 35.6 C (96.1 F) | 12/05/2016718 PST | + + + + | Respiratory Rate | 18 | 12/05/2016718 PST | + + + + | Oxygen Saturation | 96% | 12/05/2016718 PST | + + + + | Inhaled Oxygen | - | - | | Concentration | | | + + + + | Weight | 97.5 kg (215 lb) | 08/19/20181432 PDT | + + + + | Height | 180.3 cm (5' 11") | 08/19/20181432 PDT | + + + + | Body Mass Index | 29.99 | 08/19/20181432 PDT | + + + + Plan [...] | | | | | (#1) | 9 | | | + + + + + Implants + +-------+--------+ +--------+--------+--------+ | Implanted | Type | Area | Manufacture | Device | Shelf | Model | | | | | r | | Expira | / | | | | | | Identi | tion | Serial | | | | | | fier | Date | / Lot | + +-------+--------+ +--------+--------+--------+ | Hayes Sharpn Pls 1cc Aseptic | Graft | N/A: | [employer] - | | 08/13/ | [id number] | | - [id number]: Qty: | | Spine | MEDT | | 2018 | | | 1 on 12/04/2016 by Nila, | | Linda | | | | /[id number] | | Brain Rae MD | | al | | | | 6-090 | | | | | | | | / | + +-------+--------+ +--------+--------+--------+ | Algrft Cerv [id number] - | Graft | N/A: | SPINALGRAFT | | 07/15/ | 277418 | | [id number]: Qty: 1 on | | Spine | | | 2018 | | | 12/04/2016 by Brain Dotson, | | Cervic | TECHNOLOGIE | | | /32299 | | MD | | al | S - SPNL | | | 735 | | | | | | | | /06803 | | | | | | | | 1441 | + +-------+--------+ +--------+--------+--------+ | Algrft Cerv [id number] - | Graft | N/A: | SPINALGRAFT | | 06/16/ | 106703 | | [id number]: Qty: 1 on | | Spine | | | 2018 | | | 12/04/2016 by Brain Dotson, | | Cervic | TECHNOLOGIE | | | /55620 | | MD | | al | S - SPNL | | | 786 | | | | | | | | /55814 | | | | | | | | 0353 | + +-------+--------+ +--------+--------+--------+ | Algrft Cerv 6 X 4 X11m - | Graft | N/A: | SPINALGRAFT | | 07/29/ | 838796 | | [id number]: Qty: 1 on | | Spine | | | 2019 | | | 12/04/2016 by Brain Dotson, | | Cervic | TECHNOLOGIE | | | /30486 | | MD | | al | S - SPNL | | | 280 | | | | | | | | /79229 | | | | | | | | 1576 | + +-------+--------+ +--------+--------+--------+ | Algrft Cerv [id number] - | Graft | N/A: | SPINALGRAFT | | 06/16/ | [id number] | | [id number]: Qty: 1 on | | Spine | | | 2019 | | | 12/04/2016 by Brain Dotson, | | Linda | TECHNOLOGIE | | | /40368 | | MD | | al | S - SPNL | | | 790 | | | | | | | | /57903 | | | | | | | | 0353 | + +-------+--------+ +--------+--------+--------+ | Plate Ant [place]th[place] Cerv | Plate | N/A: | [employer] - | | | 923682 | | 77.5mm - [id number]: | | Spine | MEDT | | | / | | Qty: 1 on 12/04/2016 by Nila, | | Linda | | | | | | Brain Rae MD | | al | | | | | + +-------+--------+ +--------+--------+--------+ | Screw Slf-Drl F/A 4.0x17mm - | Screw | N/A: | SOFAMOR | | | [id number] | | [id number]: Qty: 2 on | | Spine | DANEK - DIV | | | 7 / | | 12/04/2016 by Brain Dotson, | | Cervic | [employer]TR[employer]IC | | | | | MD | | al | - SFDK | | | | + +-------+--------+ +--------+--------+--------+ | Screw Slf-Drl V/A 4.0x17mm - | Screw | N/A: | SOFAMOR | | | 534859 | | [id number]: Qty: 8 on | | Spine | DANEK - DIV | | | 7 / | | 12/04/2016 by Brain Dotson, | | Cervic | [employer]IC | | | | | MD | | al | - SFDK | | | | + +-------+--------+ +--------+--------+--------+ Results Not on filefrom Last 3 Months Insurance + +--------+ +--------+ +---------+--------+ | Payer | Benefi | Subscriber | Effect | Phone | Address | Type | | | t Plan | ID | johann | | | | | | / | | Dates | | | | | | Group | | | | | | + +--------+ +--------+ +---------+--------+ | [employer] | MODA | [id number] | | [phone] | | Medica | | MEDICAID HMO | HEALTH | | [id number]-Pr | 1 | | id | | | MDCD | | esent | | | | | | [place] | | | | | | + +--------+ +--------+ +---------+--------+ + +--------+ +--------+ + + | Guarantor Name | Accoun | Relation to | Date | Phone | Billing Address | | | t Type | Patient | of | | | | | | | | | | + +--------+ +--------+ + + | Kem Oliva | Person | Self | [birth year] | [address] | | [place] | al/Jj | | 1970 | [phone] | [address] | | | [place] | | | [address] (Home) | [place] [address] | + +--------+ +--------+ + + Advance Directives Patient has advance care planning documents, and code status on file. For more information, please contact:[facility] [place] [facility] [place] [address] + + + + + | Code Status | Date | Date | Comments | | | Activated | Inactivated | | + + + + + | Full Code | 12/04/2016 | 12/05/2016 | | | | 15:08 | 12:41 | | + + + + +
--- OUTSIDE RECORDS SUMMARY | ~2019-08-20 | XMS | Clinical Summary ---
Demographics + + + | Address | [address] | | | [place] [address] | + + + | Home Phone | | + + + | Preferred Language | Unknown | + + + | Marital Status | | + + + | Shinto Affiliation | Unknown | + + + | Race | Unknown | + + + | Ethnic Group | Unknown | + + + Author + + + | Author | [facility] | | | and [place] | + + + | Organization | [facility] | | | and [place] | [...] [address] | | | | | [address] | | + + + + + Care Team Providers + +------+ + | Care Tile Designer Name | Role | Phone | + [...] | [employer] - | | 08/13/ | [id number] | | - [id number]: Qty: | | Spine | MEDT | | 2018 | | | 1 on 12/04/2016 by Nila, | | Linda | | | | /[id number] | | Brain Rae MD | | al | | | | 6-090 | | | | | | | | / | + +-------+--------+ +--------+--------+--------+ | Algrft Cerv [id number] - | Graft | N/A: | SPINALGRAFT | | 07/15/ | 756828 | | [id number]: Qty: 1 on | | Spine | | | 2018 | | | 12/04/2016 by Brain Dotson, | | Cervic | TECHNOLOGIE | | | /58727 | | MD | | al | S - SPNL | | | 735 | | | | | | | | /32202 | | | | | | | | 1441 | + +-------+--------+ +--------+--------+--------+ | Algrft Cerv [id number] - | Graft | N/A: | SPINALGRAFT | | 06/16/ | 165737 | | [id number]: Qty: 1 on | | Spine | | | 2018 | | | 12/04/2016 by Brain Dotson, | | Cervic | TECHNOLOGIE | | | /02960 | | MD | | al | S - SPNL | | | 786 | | | | | | | | /96035 | | | | | | | | 0353 | + +-------+--------+ +--------+--------+--------+ | Algrft Cerv 6 X 4 X11m - | Graft | N/A: | SPINALGRAFT | | 07/29/ | 737061 | | [id number]: Qty: 1 on | | Spine | | | 2019 | | | 12/04/2016 by Brain Dotson, | | Cervic | TECHNOLOGIE | | | /29998 | | MD | | al | S - SPNL | | | 280 | | | | | | | | /44725 | | | | | | | | 1576 | + +-------+--------+ +--------+--------+--------+ | Algrft Cerv [id number] - | Graft | N/A: | SPINALGRAFT | | 06/16/ | 112991 | | [id number]: Qty: 1 on | | Spine | | | 2019 | | | 12/04/2016 by Brain Dotson, | | Linda | TECHNOLOGIE | | | /05279 | | MD | | al | S - SPNL | | | 790 | | | | | | | | /88282 | | | | | | | | 0353 | + +-------+--------+ +--------+--------+--------+ | Plate Ant Big Arm Cerv | Plate | N/A: | [employer]IC - | | | 903663 | | 77.5mm - [id number]: | | Spine | MEDT | | | / | | Qty: 1 on 12/04/2016 by Nila, | | Linda | | | | | | Brain Rae MD | | al | | | | | + +-------+--------+ +--------+--------+--------+ | Screw Slf-Drl F/A 4.0x17mm - | Screw | N/A: | SOFAMOR | | | 803891 | | [id number]: Qty: 2 on | | Spine | DANEK - DIV | | | 7 / | | 12/04/2016 by Brain Dotson, | | Cervic | [employer]TR[employer]IC | | | | | MD | | al | - SFDK | | | | + +-------+--------+ +--------+--------+--------+ | Screw Slf-Drl V/A 4.0x17mm - | Screw | N/A: | SOFAMOR | | | [id number] | | [id number]: Qty: 8 on | | Spine | [...] | [employer] | MODA | [id number] | | [phone] | | Medica | [...] | | 5 (Home) | [place] [address] | + +--------+ +--------+ + + Advance Directives Patient has advance care planning documents, and code status on file. For more information, please contact:[facility] [place] [address] + + + + + | Code Status | Date | Date | Comments | | | Activated | Inactivated | | + + + + + | Full Code | 12/04/2016 | 12/05/2016 | | | | 15:08 | 12:41 | | + + + + +
--- OUTSIDE RECORDS SUMMARY | ~2019-08-20 | XMS | Clinical Summary ---
Demographics + + + | Address | [address] | | | [place] [address] | + + + | Home Phone | | + + + | Preferred Language | Unknown | + + + | Marital Status | | + + + | Gnosticism Affiliation | Unknown | + + + | Race | Unknown | + + + | Ethnic Group | Unknown | + + + Author + + + | Author | [facility] (Historical as of | | | 06-18-19) | + + + | Organization | [facility] (Historical as of | | | 06-18-19) [...] Team Providers + +------+ + | Care Repairer Engine Production Name | Role | Phone | + [...]
[~2019-08-20 19:17] MED LIST changes: +ADDERALL XR 3030 MG PO
[2019-08-20] MEDS ORDERED: DEPAKOTE250 MG PO (19:28)
== END 2019-08-20 19:53 | disposition home or self-care (01) ==
LOC: ED 19:17
DX: R51 Headache (principal); F32.9 Major depressive disorder, single episode, unspecified; Z91.040 Latex allergy status; Z79.899 Other long term (current) drug therapy
CPT/HCPCS: 99283

== ENCOUNTER 2021-05-10 16:58 | Emergency (ER) | payer OTHER ==
[~2021-05-10] VITALS: Ht 177.8 cm; Wt 108.9 kg
[~2021-05-10 16:58] MED LIST changes: +DEPAKOTE250 MG PO
--- OUTSIDE RECORDS SUMMARY | 2021-05-10 17:00 | XMS ---
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 CRITERIA MET - PDMP - [facility] - Has Care Guidelines CARE PROVIDERS MARK VALLE Nurse Practitioner: 07/28/2018-Current PHONE: [phone] NORMA PARRA Physician 12/24/2020-Current PHONE: [phone] Care Guidelines exist for the following facilities: [facility] ( 08/22/2019 ) Care History Medical/Surgical 07/28/2018 [facility] - USE EXTREME CAUTION IN GIVING NARCOTICS TO THIS PATIENT. - Avoid Discharge Narcotic prescriptions if at all possible. PLEASE USE PROVIDER DISCRETION - PCP IS AWARE OF PATIENT SEEKING PAIN MEDICATIONSPCP HAS REFERRED PATIENT TO PHYSICAL THERAPY FOR HIS CHRONIC CONDITIONS. PCP WILL NOT PRESCRIBE PAIN MEDICATIONS FOR PATIENT CURRENT CHRONIC CONDITION. E.D. VISIT COUNT (12 MO.) 2 [facility] TOTAL 2 NOTE: Visits indicate total known visits. ED/UCC VISIT TRACKING (12 MO.) 05/10/2021 16:58 [facility] [place] TYPE: Emergency COMPLAINT: - VOMITING 12/24/2020 12:53 [facility] [place] TYPE: Emergency COMPLAINT: - RIGHT ARM NUMBNESS AND TINGLING INPATIENT VISIT TRACKING (12 MO.) No inpatient visits to display in this time frame [email or web address]
[2021-05-10] MEDS ORDERED: OXYCODONE-ACET1 EAC3 PO (17:15)
[2021-05-10] MEDS ORDERED: IBUPROFEN800 MG PO (17:16)
[2021-05-10] MEDS ORDERED: METHOCARBAMOL750 MG (17:16)
[2021-05-10] MEDS ORDERED: PROPRANOLOL HCL40 MG PO (17:16)
[2021-05-10] MEDS ORDERED: VITAMIN D21250 MCG PO (17:17)
[2021-05-10] MEDS ORDERED: PRAMIPEXOLE0.125 MG PO (17:17)
[2021-05-10] MEDS ORDERED: PROTONIX40 MG PO (18:29)
[2021-05-10] MEDS ORDERED: ZOFRAN4 MG PO (18:29)
== END 2021-05-10 19:05 | disposition home or self-care (01) ==
LOC: ED 16:58
DX: K29.00 Acute gastritis without bleeding (principal); Z91.040 Latex allergy status
CPT/HCPCS: 80053; 83690; 85025; 96374; 99284-25; J2405; J7030

== ENCOUNTER 2022-01-10 15:51 | Emergency (ER) | payer OTHER ==
[~2022-01-10] VITALS: Ht 177.8 cm; Wt 108.9 kg
[~2022-01-10 15:51] MED LIST changes: +METHOCARBAMOL750 MG; +OXYCODONE-ACET1 EAC3 PO; +PRAMIPEXOLE0.125 MG PO; +PROPRANOLOL HCL40 MG PO; +PROTONIX40 MG PO; +VITAMIN D21250 MCG PO; +ZOFRAN4 MG PO
--- OUTSIDE RECORDS SUMMARY | 2022-01-10 15:54 | XMS ---
PreManage Notification: MAUDE HUNTER [employer] Lead Events 1 event(s) in the past 18 months Most recent security events: Elopement at [facility] 12/24/2020 12:53 - Other Details: PATIENT LWBS. CRITERIA MET - [facility] PROVIDERS MARK VALLE Nurse Practitioner: 07/28/2018-Current PHONE: Unknown NORMA PARRA Current PHONE: [phone] Care Guidelines exist for the following facilities: [facility] ( 08/22/2019 ) Care History Medical/Surgical 07/28/2018 [facility] - USE EXTREME CAUTION IN GIVING NARCOTICS TO THIS PATIENT. - Avoid Discharge Narcotic prescriptions if at all possible. PLEASE USE PROVIDER DISCRETION - PCP IS AWARE OF PATIENT SEEKING PAIN MEDICATIONSPCP HAS REFERRED PATIENT TO PHYSICAL THERAPY FOR HIS CHRONIC CONDITIONS. PCP WILL NOT PRESCRIBE PAIN MEDICATIONS FOR PATIENT CURRENT CHRONIC CONDITION. ENoahD. VISIT COUNT (12 MO.) 2 HITESH Mahoney TOTAL 2 NOTE: Visits indicate total known visits. ED/UCC VISIT TRACKING (12 MO.) 01/10/2022 15:51 [facility] TYPE: Emergency COMPLAINT: - ABDOMINAL PAIN 05/10/2021 16:[address] [facility] [place] TYPE: Emergency COMPLAINT: - VOMITING DIAGNOSES: - Latex allergy status - Acute gastritis without bleeding - Vomiting, unspecified INPATIENT VISIT TRACKING (12 MO.) No inpatient visits to display in this time frame [email or web address]
[2022-01-10] MEDS ORDERED: CHLORHEXIDINE473 ML MM (16:37)
[2022-01-10] MEDS ORDERED: AMOXICILLIN500 MG PO (16:37)
[2022-01-10] MEDS ORDERED: PROTONIX40 MG PO (19:34)
[2022-01-10] MEDS ORDERED: ONDANSETRON ODT8 MG PO (19:34)
[2022-01-10] MEDS ORDERED: HYDROCODON-ACE1 EA11 PO (19:34)
[2022-01-11] MEDS ORDERED: CARAFATE1 GM PO (16:56)
[2022-01-11] MEDS ORDERED: HYDROCODON-ACE1 EA11 PO (16:57)
== END 2022-01-10 19:45 | disposition home or self-care (01) ==
LOC: ED 15:51
DX: R10.10 Upper abdominal pain, unspecified (principal); Z87.891 Personal history of nicotine dependence; Z91.040 Latex allergy status; Z79.899 Other long term (current) drug therapy
CPT/HCPCS: 36415; 74177; 80053; 83690; 85025; 96375; 96376; 99284-25; A9270; C9113; J1170; J2405; J7030; Q9967

== ENCOUNTER 2022-01-11 13:33 | Emergency (ER) | payer OTHER ==
[~2022-01-11] VITALS: Ht 177.8 cm; Wt 108.9 kg
[~2022-01-11 13:33] MED LIST changes: +AMOXICILLIN500 MG PO; +CHLORHEXIDINE473 ML MM; +HYDROCODON-ACE1 EA11 PO; +ONDANSETRON ODT8 MG PO
--- OUTSIDE RECORDS SUMMARY | 2022-01-11 13:36 | XMS ---
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 CRITERIA MET - [facility] - [facility] - 2 Visits in 30 Days CARE PROVIDERS MARK VALLE Nurse Practitioner: Family 07/28/2018-Current PHONE: Unknown NORMA PARRA Physician Current PHONE: [phone] Care Guidelines exist for the following facilities: [facility] ( 08/22/2019 ) Care History Medical/Surgical 07/28/2018 [facility] - USE EXTREME CAUTION IN GIVING NARCOTICS TO THIS PATIENT. - Avoid Discharge Narcotic prescriptions if at all possible. PLEASE USE PROVIDER DISCRETION - PCP IS AWARE OF PATIENT SEEKING PAIN MEDICATIONSPCP HAS REFERRED PATIENT TO PHYSICAL THERAPY FOR HIS CHRONIC CONDITIONS. PCP WILL NOT PRESCRIBE PAIN MEDICATIONS FOR PATIENT CURRENT CHRONIC CONDITION. E.D. VISIT COUNT (12 MO.) 3 HITESH Mahoney TOTAL 3 NOTE: Visits indicate total known visits. ED/UCC VISIT TRACKING (12 MO.) 01/11/2022 13:33 HIT[facility] Jalloh [place] TYPE: Emergency COMPLAINT: - ABD PAIN 01/10/2022 15:51 [facility] [place] TYPE: Emergency COMPLAINT: - ABDOMINAL PAIN 05/10/2021 16:58 [facility] [place] TYPE: Emergency COMPLAINT: - VOMITING DIAGNOSES: - Latex allergy status - Acute gastritis without bleeding - Vomiting, unspecified INPATIENT VISIT TRACKING (12 MO.) No inpatient visits to display in this time frame [email or web address]
[2022-01-11] MEDS ORDERED: CARAFATE1 GM PO (16:56)
[2022-01-11] MEDS ORDERED: HYDROCODON-ACE1 EA11 PO (16:57)
== END 2022-01-11 17:15 | disposition home or self-care (01) ==
LOC: ED 13:33
DX: R10.13 Epigastric pain (principal); Z87.891 Personal history of nicotine dependence; Z91.040 Latex allergy status; Z79.899 Other long term (current) drug therapy
CPT/HCPCS: 36415; 76705; 80053; 83690; 85025; 96374; 96375; 96376; 99284-25; C9113; J1170; J7030

== ENCOUNTER 2022-05-19 12:32 | Emergency (ER) | payer OTHER ==
[~2022-05-19] VITALS: Ht 177.8 cm; Wt 108.9 kg
[~2022-05-19 12:32] MED LIST changes: +CARAFATE1 GM PO
--- OUTSIDE RECORDS SUMMARY | 2022-05-19 16:36 | XMS ---
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 CRITERIA MET - [facility] CARE PROVIDERS MARK VALLE Nurse Practitioner: 07/28/2018-Current PHONE: Unknown NORMA PARRA Physician 12/24/2020-Current PHONE: [phone] Care Guidelines exist for the following facilities: [facility] ( 08/22/2019 ) Care History Medical/Surgical 07/28/2018 [facility] - USE EXTREME CAUTION IN GIVING [...] known visits. 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
[2022-05-19] MEDS ORDERED: PREDNISONE20 MG PO (17:46)
--- NOTE | 2022-05-20 12:14 | EKG ---
[facility] [address] [facility] [address] [place], [place] [address] Signed Normal sinus rhythm Normal ECG No previous ECGs available Confirmed by MEMO ELDER MD ([id number]) on 05/20/2022 12:13:53 PM Electronically Signed By: MEMO ELDER MD 05/20/22 1214 PATIENT NAME: MAUDE HUNTER Electrocardiogram DATE OF : 74 PHYSICIAN: MEMO ELDER MD REPORT #: [id number] REPORT IS CONFIDENTIAL AND NOT TO BE RELEASED WITHOUT AUTHORIZATION
== END 2022-05-19 18:13 | disposition home or self-care (01) ==
LOC: ED 12:32
DX: J45.909 Unspecified asthma, uncomplicated (principal); Z20.822 Contact with and (suspected) exposure to COVID-19; Z87.891 Personal history of nicotine dependence; Z91.040 Latex allergy status
CPT/HCPCS: 36415; 71045; 80053; 83880; 84484; 85025; 87502; 93005; 93010; 94640; 94644; 99285-25; C9803; J7512; U0003

== ENCOUNTER 2022-09-22 00:01 | Emergency (ER) | payer OTHER ==
[~2022-09-22] VITALS: Ht 177.8 cm; Wt 105.3 kg
[~2022-09-22 00:01] MED LIST changes: +PREDNISONE20 MG PO
--- OUTSIDE RECORDS SUMMARY | 2022-09-22 00:06 | XMS ---
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 - Avoid Discharge Narcotic prescriptions if at all possible. PLEASE USE PROVIDER DISCRETION - PCP IS AWARE OF PATIENT SEEKING PAIN MEDICATIONSPCP HAS REFERRED PATIENT TO PHYSICAL THERAPY FOR HIS CHRONIC CONDITIONS. PCP WILL NOT PRESCRIBE PAIN MEDICATIONS FOR PATIENT CURRENT CHRONIC CONDITION. [place] VISIT COUNT (12 MO.) 4 HITESH Mahoney TOTAL 4 NOTE: Visits indicate total known visits. ED/UCC VISIT TRACKING (12 MO.) 09/22/2022 00:03 [facility]all[facility] [place] TYPE: Emergency COMPLAINT: - L SIDE IF FACE IS PAIN 05/19/2022 12:33 [facility] [place] TYPE: Emergency COMPLAINT: - CHEST PAIN DIAGNOSES: - Latex allergy status - Unspecified asthma, uncomplicated - Shortness of breath - Personal history of nicotine dependence - Contact with and (suspected) exposure to COVID-19 01/11/2022 13:33 [facility] [place] TYPE: Emergency COMPLAINT: - ABD PAIN DIAGNOSES: - Latex allergy status - Other intermediate (current) drug therapy - Upper abdominal pain, unspecified - Epigastric pain - Personal history of nicotine dependence 01/10/2022 15:51 [facility] [place] TYPE: Emergency COMPLAINT: - ABDOMINAL PAIN DIAGNOSES: - Upper abdominal pain, unspecified - Unspecified abdominal pain - 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
[2022-09-22] MEDS ORDERED: VENTOLIN HFA18 GM INH (00:22)
[2022-09-22] MEDS ORDERED: DEXTROAMP-AMPHE20 MG PO (00:23)
[2022-09-22] MEDS ORDERED: VITAMIN D21250 MCG PO (00:24)
[2022-09-22] MEDS ORDERED: VENLAFAXINE HC225 MG PO (00:24)
[2022-09-22] MEDS ORDERED: FLONASE ALLERG9.9 ML NAS (02:05)
[2022-09-22] MEDS ORDERED: AMOX TR-K CLV1 EAC1 PO (02:05)
== END 2022-09-22 02:41 | disposition home or self-care (01) ==
LOC: ED 00:01
DX: J01.00 Acute maxillary sinusitis, unspecified (principal); Z87.891 Personal history of nicotine dependence; Z91.040 Latex allergy status
CPT/HCPCS: 36415; 70450; 70486; 80053; 85025; 85651; 86140; 96374; 99284-25; J1885

== ENCOUNTER 2023-10-28 16:20 | Emergency (ER) | payer OTHER ==
[~2023-10-28] VITALS: Ht 177.8 cm; Wt 105.2 kg
[~2023-10-28 16:20] MED LIST changes: +AMOX TR-K CLV1 EAC1 PO; +DEXTROAMP-AMPHE20 MG PO; +FLONASE ALLERG9.9 ML NAS; +VENLAFAXINE HC225 MG PO; +VENTOLIN HFA18 GM INH
[2023-10-28 17:13] LABS: INFLUENZA B NAA NEGATIVE (NEGATIVE); RESPIRATORY SYNCYTIAL VIR NAA NEGATIVE (NEGATIVE)
[2023-10-28] MEDS ORDERED: PREDNISONE20 MG PO (18:41)
[2023-10-28] MEDS ORDERED: QVAR REDIHALE10.6 GM INH (18:41)
[2023-10-28] MEDS ORDERED: VENTOLIN HFA18 GM INH (18:41)
[2023-10-28 18:47] VITALS: BP 150/92
== END 2023-10-28 18:50 | disposition home or self-care (01) ==
LOC: ED 16:20
PROVIDERS: Emergency Medicine
DX: J44.1 Chronic obstructive pulmonary disease with (acute) exacerbation (principal); Z11.52 Encounter for screening for COVID-19; Z79.51 Long term (current) use of inhaled steroids; Z79.899 Other long term (current) drug therapy; Z91.040 Latex allergy status; Z87.891 Personal history of nicotine dependence
CPT/HCPCS: 71045; 80053; 85025; 87502; 94640; 99285-25; C9803; J7512; U0002

== ENCOUNTER 2024-04-04 08:46 | Emergency (ER) | payer OTHER ==
[~2024-04-04] VITALS: Ht 177.8 cm; Wt 102.2 kg
[~2024-04-04 08:46] MED LIST changes: +QVAR REDIHALE10.6 GM INH
[2024-04-04] MEDS ORDERED: PANTOPRAZOLE SO40 MG PO (09:00)
[2024-04-04] MEDS ORDERED: PREGABALIN75 MG PO (09:00)
[2024-04-04] MEDS ORDERED: HYDROCODON-ACE1 EA10 PO (09:15)
[2024-04-04] MEDS ORDERED: PENICILLIN V P500 MG PO (09:15)
[2024-04-04 09:36] VITALS: BP 172/99
== END 2024-04-04 09:39 | disposition home or self-care (01) ==
LOC: ED 08:46
DX: K08.89 Other specified disorders of teeth and supporting structures (principal); K02.9 Dental caries, unspecified; J44.9 Chronic obstructive pulmonary disease, unspecified; Z87.891 Personal history of nicotine dependence; Z91.040 Latex allergy status; Z79.52 Long term (current) use of systemic steroids; Z79.899 Other long term (current) drug therapy
CPT/HCPCS: 99282

== ENCOUNTER 2024-06-16 10:37 | Emergency (ER) | payer OTHER ==
[~2024-06-16] VITALS: Ht 177.8 cm; Wt 104.9 kg
[~2024-06-16 10:37] MED LIST changes: +HYDROCODON-ACE1 EA10 PO; +PANTOPRAZOLE SO40 MG PO; +PENICILLIN V P500 MG PO; +PREGABALIN75 MG PO
[2024-06-16] MEDS ORDERED: ALBUTEROL/IPRATROPIUM 3 ML NEB ONE (10:40)
[2024-06-16] MEDS ORDERED: ALBUTEROL/IPRATROPIUM 3 ML NEB INH ONE ×2 (10:45→11:00)
[2024-06-16] MEDS ORDERED: ALBUTEROL SULFATE 0.5% 2.5 MG/0.5 ML VIAL ONE (10:48)
[2024-06-16] MEDS ORDERED: methylPREDNISolone SOD SUCC 125 MG/2 ML VIAL IV ONE (11:00)
[2024-06-16] MEDS ORDERED: ALBUTEROL SULFATE 0.5% 2.5 MG/0.5 ML VIAL INH ONE (11:00)
[2024-06-16 11:01] LABS: BASOPHILS 1.1 % (0-2); EOSINOPHILS 7.5 % (0-6); HEMATOCRIT 44.9 % (35.0-50.0); HEMOGLOBIN 14.9 g/dL (12.0-18.0); LYMPHOCYTES 45.7 % (24-44); MCH 31.3 (27-36); MCHC 33.1 g/dl (30-36); MCV 94.4 fl (81-99); MONOCYTES 7.7 % (0-12); PLATELET COUNT 263 K/uL (140-440); RBC 4.75 M/ul (4.3-5.7); RDW 14.6 (10.5-15.0)
[2024-06-16 11:12] LABS: ALBUMIN 3.9 g/dL (3.4-5.0); ALBUMIN/GLOBULIN RATIO 0.89 (1.1-2.4); ANION GAP 15.7 (7-21); BILIRUBIN, TOTAL 0.3 ng/dL (0.2-1.0); BUN/CREATININE RATIO 13.17 (6.0-28.6); CALCIUM 9.4 mg/dL (8.5-10.1); CREATININE, SERUM 1.29 mg/dL (0.70-1.30); POTASSIUM 4.7 mmol/L (3.5-5.1); PROTEIN, TOTAL 8.3 g/dL (6.4-8.2)
[2024-06-16 11:48] VITALS: BP 130/115
== END 2024-06-16 11:48 | disposition home or self-care (01) ==
LOC: ED 10:37
PROVIDERS: Emergency Medicine
DX: J44.89 Other specified chronic obstructive pulmonary disease (principal); J45.901 Unspecified asthma with (acute) exacerbation; Z79.899 Other long term (current) drug therapy; Z91.040 Latex allergy status; Z87.891 Personal history of nicotine dependence
CPT/HCPCS: 36415; 71045; 80053; 85025; 94640; 94644; 96374; 99285-25; J2919

== ENCOUNTER 2024-06-24 09:05 | Emergency (ER) | payer OTHER ==
[~2024-06-24] VITALS: Ht 177.8 cm; Wt 104.9 kg
[2024-06-24] MEDS ORDERED: IPRATROPIUM BROMIDE 2.5 ML VIAL INH ONE (09:15)
[2024-06-24] MEDS ORDERED: methylPREDNISolone SOD SUCC 125 MG/2 ML VIAL IV ONE (09:15)
[2024-06-24] MEDS ORDERED: MAGNESIUM SULFATE 2 GM/50 ML BAG IV ONE (09:15)
[2024-06-24] MEDS ORDERED: ALBUTEROL SULFATE 0.5% 2.5 MG/0.5 ML VIAL INH ONE (09:15)
[2024-06-24] MEDS ORDERED: QVAR REDIHALE10.6 G1 INH (09:21)
[2024-06-24] MEDS ORDERED: ALBUTEROL/IPRATROPIUM 3 ML NEB INH ONE (10:30)
[2024-06-24] MEDS ORDERED: PREDNISONE20 MG PO (10:44)
[2024-06-24 10:55] VITALS: BP 129/86
== END 2024-06-24 10:56 | disposition home or self-care (01) ==
LOC: ED 09:05
DX: J45.901 Unspecified asthma with (acute) exacerbation (principal); J44.9 Chronic obstructive pulmonary disease, unspecified; Z87.891 Personal history of nicotine dependence; Z79.899 Other long term (current) drug therapy; Z91.040 Latex allergy status
CPT/HCPCS: 71045; 94644; 96365; 96375; 99285-25; J2919; J3475; U0002

== ENCOUNTER 2024-12-03 12:05 | Emergency (ER) | payer OTHER ==
[~2024-12-03] VITALS: Ht 177.8 cm; Wt 101.2 kg
[~2024-12-03 12:05] MED LIST changes: +QVAR REDIHALE10.6 G1 INH
[2024-12-03] MEDS ORDERED: ALBUTEROL/IPRATROPIUM 3 ML NEB INH ONE (12:15)
[2024-12-03] MEDS ORDERED: predniSONE 20 MG TAB PO ONE (12:15)
[2024-12-03] MEDS ORDERED: FLUCONAZOLE MISC (12:49)
[2024-12-03] MEDS ORDERED: PREDNISONE20 MG PO (12:53)
[2024-12-03 13:00] VITALS: BP 158/90
== END 2024-12-03 13:00 | disposition home or self-care (01) ==
LOC: ED 12:05
DX: J45.901 Unspecified asthma with (acute) exacerbation (principal); J44.89 Other specified chronic obstructive pulmonary disease; Z91.148 Patient's other noncompliance with medication regimen for other reason; Z87.891 Personal history of nicotine dependence; Z91.040 Latex allergy status; Z79.899 Other long term (current) drug therapy
CPT/HCPCS: 71045; 94640; 99285-25; J7512

== ENCOUNTER 2025-05-15 13:03 | Emergency (ER) | payer OTHER ==
[~2025-05-15] VITALS: Ht 177.8 cm; Wt 96.8 kg
[~2025-05-15 13:03] MED LIST changes: +FLUCONAZOLE MISC
[2025-05-15] MEDS ORDERED: ALBUTEROL/IPRATROPIUM 3 ML NEB INH ONE (13:45)
[2025-05-15] MEDS ORDERED: PREDNISONE20 MG PO (14:23)
[2025-05-15] MEDS ORDERED: VENTOLIN HFA18 GM INH (14:23)
[2025-05-15] MEDS ORDERED: PANTOPRAZOLE SO40 MG PO (14:24)
[2025-05-15] MEDS ORDERED: predniSONE 20 MG TAB PO ONE (14:30)
[2025-05-15 14:36] VITALS: BP 134/90
== END 2025-05-15 14:36 | disposition home or self-care (01) ==
LOC: ED 13:03
DX: J45.901 Unspecified asthma with (acute) exacerbation (principal); J44.9 Chronic obstructive pulmonary disease, unspecified; Z79.899 Other long term (current) drug therapy; Z91.040 Latex allergy status; Z87.891 Personal history of nicotine dependence
CPT/HCPCS: 94640; 99284; J7512